=== PATIENT | female | born 1980 | race Caucasian/White ===

== ENCOUNTER 2019-11-09 18:50 | Emergency (ER) | payer OTHER, SELFPAY | END 2019-11-09 22:22 | disposition home or self-care (01) | PROVIDERS: Emergency Provider Family Medicine; Family Provider Electrodiagnostic Medicine; Visit Provider Family Medicine | DX: K80.70 Calculus of gallbladder and bile duct without cholecystitis without obstruction (principal); F17.210 Nicotine dependence, cigarettes, uncomplicated | CPT/HCPCS: 36415; 76705; 80053; 81001; 83690; 85025; 96361; 96374; 96375; 99284; J1885; J2270; J2405 ==

== ENCOUNTER 2019-11-16 08:25 | Day surgery (SDC) | payer OTHER, SELFPAY ==
[2019-11-14 10:18] VITALS: BMI 34.2
[2019-11-16] VITALS (12 sets, daily range): BP systolic 122–139; BP diastolic 77–96; PULSE 59–88; RESP 16–22; TEMP 36.1–36.9; O2SAT 95–99
[2019-11-16] MEDS: sodium chloride 0.9% 1,000 ML 30 ML IV (08:55)
--- NOTE | 2019-11-16 09:00 | ANES.PREANES ---
Pre-Anesthetic Assessment Pre-Anesthetic Assessment: Height/Weight: Height 1.73 m Weight 102.058 kg Temp Pulse Resp BP Pulse Ox 97.9 F 83 18 137/86 99 11/16/19 08:35 11/16/19 08:35 11/16/19 08:35 11/16/19 08:35 11/16/19 08:35 Proposed Procedure: Operation Date: 11/16/19 09:45 Proposed Procedures p Laparoscopic Cholecystectomy(Not Applicable) - Seymour Alegre MD Last intake: Intake Last Liquid Date 11/15/19 Last Liquid Time 21:30 Last Solid Date 11/15/19 Last Solid Time 18:00 Social: Social History: No alcohol and No tobacco Exam: Pre-Anes Outpt Exam: alert, oriented x 3, clear to auscultation bilaterally and regular rate & rhythm Airway: Submandibular: WNL Cervical ROM: WNL MP: 2 Additional comments: Top plate Pulmonary: Pulmonary: None reported CV/HEM: CV/HEM: None reported : : None reported Hepatic: Hepatic: None reported GI: GI: GERD Metabolic: Metabolic: None reported Musc/skel: Musc/skel: None reported Neuropsych: Neuropsych: None reported Anesthetic Plan: ASA status: II Anesthesia: MAC Risk of > 500 ml blood loss (7ml/kg in children): No Meds/Allergies Current Medications: Current Medications Generic Name Dose Route Start Last Admin Trade Name Freq PRN Reason Stop Dose Admin Sodium Chloride 1,000 mls @ 30 ml s/hr 11/16/19 08:30 11/16/19 08:55 Sodium Chloride 0.9% IV 11/17/19 08:29 30 mls/hr .Q24H SHEMAR Administration PFSH Anesthesia PFSH: Surgical History H/O lymph node biopsy (Acute) Previous delivery, delivered (Acute) x 2 Family History Denies family history of Anesthesia complication Bleeding disorder Social History Smoking and tobacco status: current every day smoker cigarettes Alcohol intake: current Alcohol intake frequency: holidays/special occasions only Lives independently: Yes Household members: spouse Marital status: Current occupational status: employed History of recent travel: No Data Anesthesia Cardiac Studies: No Data to Display
[2019-11-16 09:18] LABS: OR HCG Qualitative Urine Negative (Negative)
--- NOTE | 2019-11-16 10:37 | P.HPUD_ITS ---
H&P update H&P Update: DATE OF SURGERY/PROCEDURE: 11/16/19 DATE H&P PERFORMED: 12/31 H&P UPDATE INFORMATION: H&P completed within last 30 days, No changes to prior documentation and H&P is in [facility] EMR on date indicated CHANGES TO PREVIOUS DOCUMENTATION: none PREOP DIAGNOSIS: cholelithiasis PLANNED PROCEDURE: Operation Date: 11/16/19 09:45 Proposed Procedures p Laparoscopic Cholecystectomy(Not Applicable) - Seymour Alegre MD Full H&P Medications/Allergies: Current Medications: Current Medications Generic Name Dose Route Start Last Admin Trade Name Freq PRN Reason Stop Dose Admin Sodium Chloride 1,000 mls @ 30 ml s/hr 11/16/19 08:30 11/16/19 08:55 Sodium Chloride 0.9% IV 11/17/19 08:29 30 mls/hr .Q24H SHEMAR Administration Perinent History: Family History: Family History (Updated 11/12/19 @ 11:30 by Maria L Robles LPN) Denies family history of Anesthesia complication Bleeding disorder Social History: Social History Smoking and tobacco status: current every day smoker cigarettes Alcohol intake: current Alcohol intake frequency: holidays/special occasions only Lives independently: Yes Household members: spouse Marital status: Current occupational status: employed History of recent travel: No
--- NOTE | 2019-11-16 11:45 | PM.OP ---
Operative Report Post-Operative Note: Date of procedure: 11/16/19 Preop Diagnosis: Cholelithiasis Post-op diagnosis: same Procedure Done: Laparoscopic cholecystectomy Specimens removed/disposition: gallbladder Surgeon: Seymour Alegre Anesthesia: general Estimated blood loss (mL): 10 Condition: stable Disposition: PACU Operative Report: Procedure: The patient was taken to the operating room and was intubated under general anesthesia. After the antibiotic had been administered, the abdomen was prepped and draped in a sterile manner. Using a #15 blade, a 1 centimeter infraumbilical curvilinear incision was made and using an open Stuart technique the peritoneal cavity was entered. A 10 millimeter port was placed and 15 millimeters of pneumoperitoneum was created. A 10 millimeter, 30 degrees scope was then introduced. Three 5 millimeter ports were placed in the epigastric, midclavicular and the anterior axillary line two fingerbreadths below the costal margin on the right side under the direct visualization. Ratcheted forceps were introduced into the lateral most port and was used to retract the fundus of the gallbladder cephalad and using forceps the infundibulum of the gallbladder was retracted laterally. Using L-hook cautery the peritoneum overlying the Calot's triangle was opened medially and laterally until the cystic duct and the cystic artery were skeletonized. Dissection was carried along the body of the gallbladder and after ensuring critical view of safety, 4 clips applied on the cystic duct and 3 clips applied on the cystic artery and cut leaving, 3 clips on the remaining portion of the duct and 2 clips on the remaining portion of the artery. The rest of the gallbladder was dissected off the liver using L-hook cautery. There was no bleeding or bile leaking noted from the gallbladder fossa and the clips appeared to be in place. An EndoCatch bag was introduced to remove the gallbladder. All the ports were removed under direct visualization and there was no bleeding noted from the port sites. The fascia of the umbilicus was closed using [id number] 0 Vicryl sutures and the subcutaneous tissue was approximated using 3-0 Vicryl sutures. The skin at all four ports were closed using 4-0 Monocryl and Dermabond. A total of 10 millimeters of 0.5% Marcaine was infiltrated around the port sites. The patient was stable throughout the procedure. Coding Level of Care Code Acute Price Analyst for Chg Fwd
--- NOTE | 2019-11-16 12:00 | SUR.PHASEI ---
1157- RECEIVED PATIENT IN PACU FROM OR VIA [facility]. RESPIRATIONS ARE EVEN AND NON-LABORED. SAT 97% WITH ROOM AIR. SHE IS AWAKE AND ALERT, DROWSY. ACUTE ABDOMINAL SITES X4 ARE DRY AND INTACT WITH EXOFIN. SHE DENIES PAIN OR NAUSEA
[2019-11-16] MEDS: morphine 4 mg/mL SDV 1 mL 2 MG IVP ×2 (12:12→12:18)
--- NOTE | 2019-11-16 12:42 | SUR.PHASEI ---
1228- TRANSFERRED PATIENT FROM PACU TO OPS VIA [facility]. RESP ARE EVEN AND NONLABORED. SAT 98% WITH ROOM AIR. SHE IS AWAKE AND ALERT, RESTING QUIETLY. EXOFIN X4 DRY AND INTACT. SHE REPORTS MILD PAIN, HAS IMPROVED WITH INTERVENTION. DENIES NAUSEA. TRANSITION OF CARE TO [facility]. ANESTHESIA IS AWARE OF LAST MEDICATION ADMINISTRATION.
[2019-11-16] MEDS: HYDROcodone-acetaminophen 5-325 mg Tablet 1 TAB PO (13:27)
== END 2019-11-16 14:20 | disposition home or self-care (01) ==
LOC: OR 14:37
PROVIDERS: Family Provider Electrodiagnostic Medicine; PCP Family Medicine; Visit Provider Surgery
PROC: 0FT44ZZ Resection of Gallbladder, Percutaneous Endoscopic Approach (ICD-10-PCS; CPT 47562; principal; 2019-11-16 09:45)
DX: K80.10 Calculus of gallbladder with chronic cholecystitis without obstruction (principal); F17.210 Nicotine dependence, cigarettes, uncomplicated
CPT/HCPCS: 47562; 84703; 88304; J0690; J1100; J1885; J2250; J2270; J2405; J2704; J2710; J3010; J3490; J7030

== ENCOUNTER 2021-05-18 07:37 | Outpatient (CLI) | payer BC, SELFPAY ==
--- NOTE | 2021-05-18 07:45 | MR_ITS ---
WS: [id number] MRI BRAIN/ORBITS with and without CONTRAST. COMPARISON: 09/23/2018 Multiplanar, multisequence imaging is performed with and without contrast. Optic nerves bilaterally are very mildly enlarged. There is abnormal signal nearly diffuse throughout the LEFT optic nerve. Just posterior to the globe there is enlargement with patchy but near contiguo us abnormal enhancement through the optic nerve to the chiasm. There is also enhancement along the op tic nerve sheath. There is additional focal abnormal enhancement in the RIGHT optic nerve as it appro aches the chiasm. There is mild enhancement of the RIGHT peripheral nerve sheath through the optic ch iasm. Prechiasmatic optic nerves are normal. No signal abnormalities within the brain to suggest multiple sclerosis. There are no enhancing lesion s and pericallosal distribution. There are a few scattered T2 and FLAIR signal hyperintensities in th e white matter which are predominantly subcortical. No abnormalities in the posterior fossa or within the visualized brainstem. No infarcts. Cerebellopontine angles are normal. Ventricles are normal. Imaging of the dural venous sinuses is negative. No significant sinus disease. Mastoid air cells are clear. MR/MR head orbits wo/w* 02015/43 IMPRESSION: 1. Bilateral optic neuritis. Near diffuse changes of optic neuritis in the LEF T optic nerve with more focal changes of optic neuritis in the RIGHT optic nerv e. Consider demyelinating disease such as multiple sclerosis, infectious etiolo gies and sarcoid. 2. No acute infarcts or pericallosal white matter signal abnormalities. No kevin nges within the brain to suggest multiple sclerosis.
[2021-05-18] MEDS: gadobenate dimeglumine 20 mL vial IV (11:58)
== END 2021-05-18 07:38 | disposition home or self-care (01) ==
LOC: RADSHAW 07:43
PROVIDERS: PCP Electrodiagnostic Medicine; Visit Provider Ophthalmology
DX: H47.012 Ischemic optic neuropathy, left eye (principal); H53.40 Unspecified visual field defects; H46.9 Unspecified optic neuritis
CPT/HCPCS: 70543; 70553; A9577

== ENCOUNTER → 2022-01-31 09:10 | Outpatient (BNVA) | payer BC, SELFPAY | PROVIDERS: PCP Electrodiagnostic Medicine; Visit Provider Emergency Medicine | DX: J02.9 Acute pharyngitis, unspecified (principal); H65.191 Other acute nonsuppurative otitis media, right ear | CPT/HCPCS: 87071; 87880 ==

== ENCOUNTER → 2022-02-20 09:52 | Outpatient (BNVA) | payer BC, SELFPAY | PROVIDERS: PCP Electrodiagnostic Medicine; Visit Provider Emergency Medicine | DX: R39.9 Unspecified symptoms and signs involving the genitourinary system (principal); R10.9 Unspecified abdominal pain; R35.0 Frequency of micturition; N39.0 Urinary tract infection, site not specified; R10.32 Left lower quadrant pain | CPT/HCPCS: 81000; 87086 ==

== ENCOUNTER → 2022-03-20 08:39 | Outpatient (BNVA) | payer BC, SELFPAY | PROVIDERS: PCP Electrodiagnostic Medicine; Visit Provider Family Medicine | DX: I10 Essential (primary) hypertension (principal); Z13.1 Encounter for screening for diabetes mellitus; Z13.220 Encounter for screening for lipoid disorders; Z13.6 Encounter for screening for cardiovascular disorders; R53.83 Other fatigue; Z72.0 Tobacco use; R53.82 Chronic fatigue, unspecified; Z76.89 Persons encountering health services in other specified circumstances; Z86.59 Personal history of other mental and behavioral disorders | CPT/HCPCS: 80053; 80061; 82607; 82652; 84443; 85025 ==

== ENCOUNTER → 2022-08-16 08:46 | Outpatient (BNVA) | payer BC, SELFPAY | PROVIDERS: PCP Family Medicine; Visit Provider Family Medicine | DX: I12.9 Hypertensive chronic kidney disease with stage 1 through stage 4 chronic kidney disease, or unspecified chronic kidney disease (principal); N18.2 Chronic kidney disease, stage 2 (mild); Z87.891 Personal history of nicotine dependence; G44.219 Episodic tension-type headache, not intractable | CPT/HCPCS: 80048 ==

== ENCOUNTER → 2023-09-21 09:31 | Outpatient (BNVA) | payer BC, SELFPAY | PROVIDERS: PCP Family Medicine; Visit Provider Emergency Medicine | DX: N39.0 Urinary tract infection, site not specified (principal) | CPT/HCPCS: 81000; 87077; 87086; 87184 ==

== ENCOUNTER → 2023-10-04 09:01 | Outpatient (BNVA) | payer BC, SELFPAY | PROVIDERS: PCP Family Medicine; Visit Provider Family Medicine | DX: I10 Essential (primary) hypertension (principal); N18.9 Chronic kidney disease, unspecified; Z13.220 Encounter for screening for lipoid disorders; Z13.6 Encounter for screening for cardiovascular disorders | CPT/HCPCS: 80053; 80061 ==

== ENCOUNTER 2023-10-23 11:07 | Outpatient (CLI) | payer BC, SELFPAY ==
--- NOTE | 2023-10-23 11:10 | MM_ITS ---
WS: [id number] VIEWS: MLO and CC views both breasts. 3D digital tomosynthesis is also included in this exam. Baseline study Findings: There was no sign of mass, architectural distortion or suspicious calcification in either breast. The breasts are heterogeneously dense which may obscure small masses. Impression: MM/[place] [id number] BI-RADS: 2-Benign finding. FOLLOW-UP: 1 Year Follow-up This mammogram was also analyzed by the Computer Aided Detection System R2 Imag [employer].
== END 2023-10-23 11:08 | disposition home or self-care (01) ==
LOC: RAD 11:07
PROVIDERS: PCP Family Medicine; Visit Provider Family Medicine
DX: Z12.31 Encounter for screening mammogram for malignant neoplasm of breast (principal)
CPT/HCPCS: 77063; 77067

== ENCOUNTER → 2024-02-10 13:57 | Outpatient (BNVA) | payer BC, SELFPAY | PROVIDERS: PCP Family Medicine; Visit Provider Family Medicine | DX: Z12.4 Encounter for screening for malignant neoplasm of cervix (principal) | CPT/HCPCS: 87624 ==

== ENCOUNTER → 2024-12-07 08:41 | Outpatient (BNVA) | payer BC, SELFPAY | PROVIDERS: PCP Family Medicine; Visit Provider Family Medicine | DX: I10 Essential (primary) hypertension (principal) | CPT/HCPCS: 80053; 80061 ==

== ENCOUNTER 2024-12-17 10:19 | Outpatient (CLI) | payer BC, SELFPAY ==
--- NOTE | 2024-12-17 10:20 | MM_ITS ---
WS: [id number] SCREENING DIGITAL BREAST TOMOSYNTHESIS MAMMOGRAM WITH CAD HISTORY: Z12.39 - Encounter for other screening for malignant neop... COMPARISON: 10/23/2023 Bilateral CC and MLO with tomosynthesis and synthetic mammography submitted. Computer aided detection analyzed. Breast composition: The breasts are heterogeneously dense, which may obscure small masses. Partially obscured mass in the upper outer quadrant of the LEFT breast measures 5 x 7 mm. On the lateral projection there is asymmetry just above the nipple line. The mass is not definitely seen as a discrete structure. RIGHT breast is negative. MM/MM scr BI tomosynthesis [id number] IMPRESSION: BI-RADS: 0 - Incomplete: Need additional imaging evaluation FOLLOW UP: 1 Year Follow-up LEFT breast: Spot compression views (CC and MLO). True ML. Ultrasound to follow if abnormality persists.
== END 2024-12-17 10:20 | disposition home or self-care (01) ==
LOC: MOBLMAM 10:20
PROVIDERS: PCP Family Medicine; Visit Provider Family Medicine
DX: Z12.31 Encounter for screening mammogram for malignant neoplasm of breast (principal); R92.323 Mammographic fibroglandular density, bilateral breasts; N63.21 Unspecified lump in the left breast, upper outer quadrant; N64.89 Other specified disorders of breast
CPT/HCPCS: 77063; 77067

== ENCOUNTER → 2024-12-31 14:02 | Outpatient (BNVA) | payer BC, SELFPAY | PROVIDERS: PCP Family Medicine; Referring Provider Family Medicine; Visit Provider Family Medicine | DX: M77.8 Other enthesopathies, not elsewhere classified (principal); M61.411 Other calcification of muscle, right shoulder | CPT/HCPCS: 73030 ==

== ENCOUNTER 2025-01-18 08:18 | Outpatient (CLI) | payer BC, SELFPAY ==
--- NOTE | 2025-01-18 08:21 | MM_ITS ---
WS: [id number] ADDITIONAL VIEWS LEFT MAMMOGRAM WITH DIGITAL BREAST TOMOSYNTHESIS. LEFT breast ultrasound, limited HISTORY: ABNORMAL MAMMO COMPARISON: 12/17/2024, 10/23/2023 Spot compression views LEFT breast in CC, MLO projections and true ML submitted with digital breast tomosynthesis and SM. Breast composition: The breasts are heterogeneously dense, which may obscure small masses. Asymmetry persists but appears [id number] in the upper outer quadrant. There is no distortion. Suspect this is probably all normal fibroglandular pattern. Ultrasound to follow in the area of greatest asymmetry. LEFT breast ultrasound, limited. Ultrasound to the upper outer quadrant of the LEFT breast from 12-3 o'clock demonstrates several small cysts. There is 1 cyst with low-level echoes. Low- level echoes are probably due to deep position as there is through transmission. MM/MM diag LT tomosynthesis [id number] IMPRESSION: BI-RADS: 2 - Benign FOLLOW UP: 1 Year Follow-up
== END 2025-01-18 08:19 | disposition home or self-care (01) ==
LOC: RAD 08:19
PROVIDERS: PCP Family Medicine; Visit Provider Family Medicine
DX: R92.8 Other abnormal and inconclusive findings on diagnostic imaging of breast (principal); R92.333 Mammographic heterogeneous density, bilateral breasts; N64.89 Other specified disorders of breast; N60.12 Diffuse cystic mastopathy of left breast
CPT/HCPCS: 76642; 77061; G0279